=== PATIENT | male | born 1970 | race Caucasian/White ===

== ENCOUNTER 2018-04-06 22:04 | Emergency (ER) | payer OTHER ==
[~2018-04-06] VITALS: Ht 172.7 cm; Wt 83.2 kg
[2018-04-06 22:13] VITALS: BP 148/100
[2018-04-06] MEDS ORDERED: ONDANSETRON ODT 4 MG ONE (22:51)
[2018-04-06] MEDS ORDERED: HYDROmorphone 2 MG/ML, 1ML ONE (22:52)
[2018-04-06] MEDS ORDERED: HYDROmorphone 2 MG/ML, 1ML IM ONE (23:00)
== END 2018-04-07 00:05 | disposition home or self-care (01) ==
LOC: ED 23:50
DX: R51 Headache (principal); R11.0 Nausea; L76.82 Other postprocedural complications of skin and subcutaneous tissue; Z85.828 Personal history of other malignant neoplasm of skin; K21.9 Gastro-esophageal reflux disease without esophagitis
CPT/HCPCS: 96372; 99283; J1170

== ENCOUNTER 2020-08-10 08:29 | Emergency (ER) | payer BC, OTHER ==
[~2020-08-10] VITALS: Ht 172.7 cm; Wt 84.8 kg
[2020-08-10 08:47] VITALS: BP 150/83
== END 2020-08-10 09:25 | disposition home or self-care (01) ==
LOC: ED 09:20
DX: F51.01 Primary insomnia (principal); F41.9 Anxiety disorder, unspecified
CPT/HCPCS: 99283